=== PATIENT | male | born 1995 | race Asian ===

== ENCOUNTER 2019-04-21 00:08 | Emergency (ER) | payer SELFPAY ==
[~2019-04-21] VITALS: Ht 170.2 cm; Wt 77.1 kg
[2019-04-21] MEDS ORDERED: NKM (00:18)
[2019-04-21 00:25] VITALS: BP 130/70
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
[2019-04-21] MEDS ORDERED: IBUPROFEN600 MG ORAL (01:02)
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
[2019-04-21 01:10] VITALS: BP 130/70
--- NOTE | 2019-04-21 01:10 | NUR ---
ER Nurse Note: Pt seen, treated, medically cleared for discharge by ERMD. Discharge instuctions and prescriptions given with repeat verbalization by pt. Emphasized to follow up with primay care provider; take whole course of medication. Explained each medication. All orders completed per ERMD orders. Pt a&ox4, VSS, no signs of distress. ID band removed. Pt refused to wear wrist brace; recommened pt wear brace untill f/u with PCP. All questions answered per pt's questions. Pt left with all belongings, left with own transportation.
== END 2019-04-21 01:10 | disposition home or self-care (01) ==
LOC: EMR 01:01
DX: S63.91XA Sprain of unspecified part of right wrist and hand, initial encounter (principal); S63.92XA Sprain of unspecified part of left wrist and hand, initial encounter; S00.83XA Contusion of other part of head, initial encounter; S70.11XA Contusion of right thigh, initial encounter; Y04.2XXA Assault by strike against or bumped into by another person, initial encounter; Y92.9 Unspecified place or not applicable
CPT/HCPCS: 29125; 99284